=== PATIENT | male | born 1940 ===

== ENCOUNTER → 2022-07-15 | Outpatient (CLI) | payer MEDICARE ==
[~2022-07-15] MED LIST: ALBU8.5H8 IH; ATEN-187 PO; ATOR10TA69 PO; CHOL200013 PO; DOCU-119 PO; DULO20CA71 PO; LIDO700A15 TP; MECO10005 PO; MIRT7.5T11 PO; OMEP20 PO; OXYC-708 PO; OXYC10TA48 PO; SENN-308 PO; TAMS-13 PO; TIOT4MIS2 PO
[2022-07-15 09:25] VITALS: BP 105/56
== END | disposition home or self-care (01) ==
LOC: SRCNTR 09:09
PROVIDERS: ATTEND Internal Medicine
DX: J44.9 Chronic obstructive pulmonary disease, unspecified (principal); F17.210 Nicotine dependence, cigarettes, uncomplicated; R91.8 Other nonspecific abnormal finding of lung field; Z88.2 Allergy status to sulfonamides
CPT/HCPCS: G0463

== ENCOUNTER → 2022-11-19 | Outpatient (CLI) | payer MEDICARE, BC ==
[~2022-11-19] VITALS: Ht 180.3 cm; Wt 56.0 kg
[2022-11-19 10:00] VITALS: BP 107/71
== END | disposition home or self-care (01) ==
LOC: SRCNTR 09:39
PROVIDERS: ATTEND Internal Medicine
DX: Z09 Encounter for follow-up examination after completed treatment for conditions other than malignant neoplasm (principal); R91.8 Other nonspecific abnormal finding of lung field; J44.9 Chronic obstructive pulmonary disease, unspecified; Z87.891 Personal history of nicotine dependence
CPT/HCPCS: G0463; Z7500

== ENCOUNTER → 2023-03-16 | Outpatient (CLI) | payer MEDICARE, BC ==
[~2023-03-16] VITALS: Ht 180.3 cm; Wt 57.0 kg
[~2023-03-16] MED LIST changes: +CYCL-448 PO
[2023-03-16 09:42] VITALS: BP 151/82
== END | disposition home or self-care (01) ==
LOC: SRCNTR 09:12
PROVIDERS: ATTEND Internal Medicine
DX: R91.8 Other nonspecific abnormal finding of lung field (principal); J44.9 Chronic obstructive pulmonary disease, unspecified; F17.200 Nicotine dependence, unspecified, uncomplicated
CPT/HCPCS: G0463; Z7500